=== PATIENT | male | born 1990 | race Caucasian/White ===

== ENCOUNTER 2020-06-14 09:17 | Emergency (ER) | payer BC, SELFPAY | END 2020-06-14 10:05 | disposition home or self-care (01) | LOC: ERS 09:17 | DX: J30.2 Other seasonal allergic rhinitis (principal) | CPT/HCPCS: 99283 ==

== ENCOUNTER 2020-12-22 11:34 | Inpatient (IN) | payer SELFPAY ==
[2020-12-22] MEDS ORDERED: Ondansetron PF 4 MG/2 ML Vial ONE (12:16)
[2020-12-22] MEDS ORDERED: Morphine 4 MG/ML VIAL ONE (12:16)
[2020-12-22 12:26] LABS: Hemoglobin 14.4 g/dL (14.0-18.0); Mean Corpuscular HGB CONC 33.3 g/dL (32.0-36.0); Mean Corpuscular Hemoglobin 28.5 pg (27.0-31.0); Mean Corpuscular Volume 85.5 fL (78.0-98.0); Mean Platelet Volume 6.9 fL (7.4-10.4); Platelet Count 188 thou/uL (130-400); RBC Distribution Width 11.3 % (11.5-14.5); Red Blood Cell (RBC) Count 5.04 mill/uL (4.70-6.10); White Blood Cell (WBC) Count 5.6 thou/uL (4.8-10.8)
[2020-12-22 12:29] LABS: PTT 23.8 sec (22.9-36.1); Prothrombin Time 13.5 sec (12.0-14.7)
[2020-12-22 12:45] LABS: ALT (SGPT) 17 U/L (8-55); AST (SGOT) 19 U/L (5-34); Albumin 4.2 g/dL (3.5-5.0); Alkaline Phosphatase 75 U/L (40-110); Anion Gap 12 mmol/L (10-20); BUN (Urea Nitrogen) 9 mg/dL (8.9-20.6); Bilirubin, Total 0.7 mg/dL (0.2-1.2); CK (CPK) 75 U/L (30-200); Calc. Creatinine Clearance 0 mL/min (70-130); Calcium 9.2 mg/dL (7.8-10.44); Carbon Dioxide 23 mmol/L (22-29); Chloride 105 mmol/L (98-107); Globulin 3.5 g/dL (2.4-3.5); Glucose 90 mg/dL (70-105); Lipase 18 U/L (8-78); Potassium 3.6 mmol/L (3.5-5.1); Protein, Total 7.7 g/dL (6.0-8.3); Sodium 136 mmol/L (136-145)
[2020-12-22 12:50] LABS: Band 15 % (5-11); Lymphocytes 8 % (21-51); MDiff Complete? YES; Monocytes 19 % (0-10); Neutrophil 54 % (42-75); Platelet Morphology Comment Appears Adequate; RBC Morphology Normal; Reactive Lymphocytes 4 % (0-10)
[2020-12-22] MEDS ORDERED: Iopamidol-370 76% 500 ML 1 ML ONE (12:50)
[2020-12-22] MEDS ORDERED: Cefepime 2 GM VIAL ONE (13:08)
[2020-12-22 13:55] LABS: Bilirubin Negative (Negative); Blood, Urine Negative (Negative); Clarity Clear (Clear); Glucose, Urine (Dipstick) Normal (Negative); Ketone, Urine Negative (Negative); Leukocyte Negative Leu/uL (Negative); Nitrite Negative (Negative); Protein, Urine (Dipstick) 20 mg/dL (Neg-Trace); Urobilinogen Normal mg/dL (Less than 2)
[2020-12-22 13:56] LABS: Specific Gravity, Urine 1.044 (1.002-1.036)
[2020-12-22] MEDS ORDERED: metroNIDAZOLE 500 MG/100 ML BAG ONE (13:57)
[2020-12-22] MEDS ORDERED: Morphine 2 MG/ML VIAL ONE (15:35)
[2020-12-22 17:35] LABS: SARS-CoV-2 NAA Rapid Test DETECTED (NotDetected)
[2020-12-22 18:16] VITALS: BMI 29.3
[2020-12-22] MEDS ORDERED: Senokot S 8.6-50 MG TAB PO PRN (18:16)
[2020-12-22] MEDS ORDERED: Ondansetron ODT 4 MG TAB PO PRN (18:16)
[2020-12-22] MEDS ORDERED: Ketorolac Tromethamine 30 MG/ML VIAL IVP SCH (18:16)
[2020-12-22] MEDS ORDERED: Ondansetron PF 4 MG/2 ML Vial IVP PRN (18:16)
[2020-12-22] MEDS ORDERED: HYDROcodone/Acetaminophen 5/325 mg Tablet PO PRN (18:16)
[2020-12-22] MEDS ORDERED: Acetaminophen 500 MG TAB PO PRN (18:16)
[2020-12-22] MEDS ORDERED: hydrALAZINE 20 MG/ML VIAL SLOW IVP PRN (18:16)
[2020-12-22] MEDS ORDERED: Dexamethasone 4 MG TAB PO SCH (20:00)
[2020-12-22] MEDS: Sodium Chloride 0.9% 1,000 ML IV SCH (20:25)
[2020-12-22] MEDS: Ascorbic Acid 500 mg Chewable Tablet PO SCH (20:26)
[2020-12-22] MEDS: Cholecalciferol 1,000 UNITS (25 MCG) TAB PO SCH (20:27)
[2020-12-22] MEDS: Enoxaparin Sodium 40 MG/0.4 ML SYRINGE SC SCH (20:27)
[2020-12-22] MEDS: Famotidine 20 MG TAB PO SCH (20:27)
[2020-12-22] MEDS: Nortriptyline HCl 25 MG CAP PO SCH (20:27)
[2020-12-22] MEDS: Ketorolac Tromethamine 30 MG/ML VIAL IVP SCH (23:36)
[2020-12-23 05:41] LABS: #Lymphocytes 0.6 thou/uL (1.20-3.40); #Monocytes 0.2 thou/uL (0.11-0.59); %Basophils 0.4 % (0.0-1.0); %Eosinophils 0.2 % (0.0-10.0); %Lymphocytes 15.1 % (21.0-51.0); %Monocytes 6.1 % (0.0-10.0); %Neutrophils 78.1 % (42.0-75.0); Hemoglobin 13.9 g/dL (14.0-18.0); Mean Corpuscular HGB CONC 32.2 g/dL (32.0-36.0); Mean Corpuscular Volume 86.8 fL (78.0-98.0); Mean Platelet Volume 7.2 fL (7.4-10.4); Platelet Count 175 thou/uL (130-400); RBC Distribution Width 11.4 % (11.5-14.5); Red Blood Cell (RBC) Count 4.97 mill/uL (4.70-6.10); White Blood Cell (WBC) Count 3.8 thou/uL (4.8-10.8)
[2020-12-23] MEDS: Ketorolac Tromethamine 30 MG/ML VIAL IVP SCH ×4 (05:50→23:51)
[2020-12-23] MEDS: Sodium Chloride 0.9% 1,000 ML IV SCH ×3 (05:53→14:49)
[2020-12-23 06:09] LABS: ALT (SGPT) 18 U/L (8-55); AST (SGOT) 21 U/L (5-34); Albumin 3.9 g/dL (3.5-5.0); Alkaline Phosphatase 67 U/L (40-110); Anion Gap 14 mmol/L (10-20); BUN (Urea Nitrogen) 8 mg/dL (8.9-20.6); Bilirubin, Total 0.5 mg/dL (0.2-1.2); CRP (Inflammatory) 0.87 mg/dL (= or < 0.5); Calc. Creatinine Clearance 111 mL/min (70-130); Calcium 8.9 mg/dL (7.8-10.44); Carbon Dioxide 20 mmol/L (22-29); Chloride 107 mmol/L (98-107); Globulin 3.3 g/dL (2.4-3.5); Glucose 120 mg/dL (70-105); Potassium 4.2 mmol/L (3.5-5.1); Protein, Total 7.2 g/dL (6.0-8.3); Sodium 137 mmol/L (136-145)
[2020-12-23] MEDS: Zinc Sulfate 220 MG CAP PO SCH (08:48)
[2020-12-23] MEDS: Famotidine 20 MG TAB PO SCH ×2 (08:48→20:04)
[2020-12-23] MEDS: Enoxaparin Sodium 40 MG/0.4 ML SYRINGE SC SCH ×2 (08:48→20:03)
[2020-12-23] MEDS: Dexamethasone 4 MG TAB PO SCH ×2 (08:48→17:15)
[2020-12-23] MEDS: Ascorbic Acid 500 mg Chewable Tablet PO SCH ×2 (08:48→20:03)
[2020-12-23] MEDS ORDERED: Fluticasone Propionate Nasal Spray 16 gm Bottle NASAL PRN (09:31)
[2020-12-23] MEDS ORDERED: Fioricet 325/50/40 mg Tablet PO PRN (10:53)
[2020-12-23] MEDS ORDERED: Fioricet 325/50/40 mg Tablet PO SCH (11:00)
[2020-12-23] MEDS: Cholecalciferol 1,000 UNITS (25 MCG) TAB PO SCH (20:03)
[2020-12-23] MEDS: Nortriptyline HCl 25 MG CAP PO SCH (20:04)
[2020-12-23] MEDS: Vancomycin 1 GM in Premix Bag 1 BAG IVPB SCH (20:04)
[2020-12-24] MEDS: Sodium Chloride 0.9% 1,000 ML IV SCH ×2 (03:12→11:36)
[2020-12-24] MEDS: Ketorolac Tromethamine 30 MG/ML VIAL IVP SCH ×2 (05:47→11:35)
[2020-12-24 06:53] LABS: Anion Gap 12 mmol/L (10-20); BUN (Urea Nitrogen) 10 mg/dL (8.9-20.6); CRP (Inflammatory) Less than 0.50 mg/dL (= or < 0.5); Calc. Creatinine Clearance 132 mL/min (70-130); Calcium 8.6 mg/dL (7.8-10.44); Carbon Dioxide 24 mmol/L (22-29); Chloride 107 mmol/L (98-107); Glucose 109 mg/dL (70-105); Potassium 4.1 mmol/L (3.5-5.1); Sodium 139 mmol/L (136-145)
[2020-12-24 07:04] LABS: Hemoglobin 13.4 g/dL (14.0-18.0); Mean Corpuscular HGB CONC 32.3 g/dL (32.0-36.0); Mean Corpuscular Hemoglobin 27.7 pg (27.0-31.0); Mean Corpuscular Volume 85.8 fL (78.0-98.0); Mean Platelet Volume 7.4 fL (7.4-10.4); Platelet Count 206 thou/uL (130-400); RBC Distribution Width 11.1 % (11.5-14.5); Red Blood Cell (RBC) Count 4.84 mill/uL (4.70-6.10); White Blood Cell (WBC) Count 6.1 thou/uL (4.8-10.8)
[2020-12-24 08:02] LABS: Band 17 % (5-11); Lymphocytes 16 % (21-51); MDiff Complete? YES; Monocytes 13 % (0-10); Neutrophil 53 % (42-75); RBC Morphology Normal; Reactive Lymphocytes 1 % (0-10)
[2020-12-24] MEDS: Famotidine 20 MG TAB PO SCH (08:20)
[2020-12-24] MEDS: Ascorbic Acid 500 mg Chewable Tablet PO SCH (08:20)
[2020-12-24] MEDS: Dexamethasone 4 MG TAB PO SCH ×2 (08:20→16:16)
[2020-12-24] MEDS: Zinc Sulfate 220 MG CAP PO SCH (08:20)
[2020-12-24] MEDS: Vancomycin 1 GM in Premix Bag 1 BAG IVPB SCH (08:21)
[2020-12-24] MEDS: Enoxaparin Sodium 40 MG/0.4 ML SYRINGE SC SCH (08:21)
[2020-12-24 11:03] VITALS: BP 138/93; TEMP 98.3
== END 2020-12-24 17:08 | disposition home or self-care (01) | DRG 178 ==
LOC: ERS 11:34 → OBSVTOIN 16:01 → T4-B 16:01
PROVIDERS: ADMIT Family Medicine; ATTEND Family Medicine
PROC: 8E0ZXY6 Isolation (ICD-10-PCS; principal; 2020-12-22)
DX: U07.1 COVID-19 (principal); R65.10 Systemic inflammatory response syndrome (SIRS) of non-infectious origin without acute organ dysfunction; R78.81 Bacteremia; E86.0 Dehydration; G43.909 Migraine, unspecified, not intractable, without status migrainosus; G43.709 Chronic migraine without aura, not intractable, without status migrainosus; R10.9 Unspecified abdominal pain; F12.10 Cannabis abuse, uncomplicated; R03.0 Elevated blood-pressure reading, without diagnosis of hypertension; F15.10 Other stimulant abuse, uncomplicated; Z88.0 Allergy status to penicillin; Z88.1 Allergy status to other antibiotic agents; Z79.899 Other long term (current) drug therapy; Z87.76 Personal history of (corrected) congenital malformations of integument, limbs and musculoskeletal system; Z98.890 Other specified postprocedural states
CPT/HCPCS: 0240U; 36415; 71045; 74177; 76705; 80048; 80053; 81003; 82550; 82728; 83605; 83690; 85025; 85610; 85730; 86140; 87040; 87086; 87149; 93005; 94760; 96365; 96367; 96375; 96376; J0692; J1650; J1885; J2270; J2405; J3370; J8540; Q9967